=== PATIENT | female | born 1970 | race Caucasian/White ===

== ENCOUNTER → 2021-03-30 12:47 | Outpatient (CLI) | payer OTHER, SELFPAY ==
--- NOTE | ~2021-03-30 | MM_ITS ---
EXAMINATION: MM screening jina BI w martínez HISTORY: Screening mammogram TECHNIQUE: Craniocaudal and mediolateral oblique 3-D tomosynthesis images were obtained and synthetic 2-D images were generated. CAD analysis was submitted and interpreted. COMPARISON: 11/07/2018, 11/01/2017, 10/03/2016 bilateral digital screening mammogram examinations BREAST PARENCHYMAL COMPOSITION: There are scattered areas of fibroglandular density. FINDINGS: There is no evidence of suspicious mass, calcification, or architectural distortion to sugg est malignancy in either breast. There has been no suspicious interval change. IMPRESSION: 1. No mammographic evidence of malignancy. 2. Recommend routine screening mammography in one year. BI-RADS Category 1: Negative Reviewed, dictated and finalized at location A.
== END ==
PROVIDERS: Visit Provider Nurse Practitioner
DX: Z12.31 Encounter for screening mammogram for malignant neoplasm of breast (principal)
CPT/HCPCS: 77063; 77067

== ENCOUNTER 2022-06-13 15:42 | Outpatient (CLI) | payer OTHER, SELFPAY ==
--- NOTE | ~2022-06-13 | XR_ITS ---
XR chest 2V DATE: 06/13/2022 15:57 INDICATION: Cough for 4+ weeks. Covid infection in April. TECHNIQUE: PA and lateral views COMPARISON: None FINDINGS: Normal heart size. No hilar or mediastinal enlargement. The lungs are moderately hyperinfla gentry but clear of infiltrate or consolidation. No pleural effusion or pulmonary vascular congestion or pneumothorax. Included skeletal structures are unremarkable. IMPRESSION: No active cardiopulmonary disease Reviewed, dictated and finalized at location B. 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
== END 2022-06-13 15:43 | disposition home or self-care (01) ==
LOC: ANHIMG 15:44
PROVIDERS: PCP Family Medicine; Visit Provider Nurse Practitioner Family
DX: R05.3 Chronic cough (principal)
CPT/HCPCS: 71046

== ENCOUNTER 2022-07-17 15:01 | Outpatient (CLI) | payer OTHER, SELFPAY ==
--- NOTE | ~2022-07-17 | MM_ITS ---
EXAMINATION: MM screening jina BI w martínez HISTORY: Screening mammogram TECHNIQUE: Craniocaudal and mediolateral oblique 3-D tomosynthesis images were obtained and synthetic 2-D images were generated. CAD analysis was submitted and interpreted. COMPARISON: 03/30/2021, 11/07/2018, 11/01/2017 bilateral screening mammogram examinations BREAST PARENCHYMAL COMPOSITION: There are scattered areas of fibroglandular density. FINDINGS: Stable mild fibroglandular asymmetry. There is no evidence of suspicious mass, calcificatio n, or architectural distortion to suggest malignancy in either breast. There has been no suspicious i nterval change. IMPRESSION: 1. No mammographic evidence of malignancy. 2. Recommend routine screening mammography in one year. BI-RADS Category 2: Benign finding(s). Reviewed, dictated and finalized at location A. 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
== END 2022-07-17 15:02 | disposition home or self-care (01) ==
LOC: ANHIMG 15:03
PROVIDERS: PCP Family Medicine; Visit Provider Nurse Practitioner
DX: Z12.31 Encounter for screening mammogram for malignant neoplasm of breast (principal)
CPT/HCPCS: 77063; 77067

== ENCOUNTER 2023-11-05 08:37 | Outpatient (CLI) | payer OTHER, SELFPAY ==
--- NOTE | ~2023-11-05 | MM_ITS ---
EXAMINATION: MM screening jina BI w martínez HISTORY: Screening mammogram TECHNIQUE: Craniocaudal and mediolateral oblique 3-D tomosynthesis images were obtained and synthetic 2-D images were generated. CAD analysis was submitted and interpreted. COMPARISON: 07/17/2022, 03/30/2021 bilateral screening mammogram examinations BREAST PARENCHYMAL COMPOSITION: There are scattered areas of fibroglandular density. FINDINGS: There is no evidence of suspicious mass, calcification, or architectural distortion to sugg est malignancy in either breast. There has been no suspicious interval change. IMPRESSION: 1. No mammographic evidence of malignancy. 2. Recommend routine screening mammography in one year. BI-RADS Category 1: Negative Reviewed, dictated and finalized at location A.
== END 2023-11-05 08:38 | disposition home or self-care (01) ==
PROVIDERS: PCP Family Medicine; Visit Provider Nurse Practitioner
DX: Z12.31 Encounter for screening mammogram for malignant neoplasm of breast (principal)
CPT/HCPCS: 77063; 77067

== ENCOUNTER 2024-05-21 00:12 | Day surgery (SDC) | payer OTHER, SELFPAY ==
[2024-05-08 14:19] VITALS: BMI 28.3
[2024-05-21 12:22] VITALS: BP 145/82; PULSE 63; RESP 18; TEMP 36.4; O2SAT 98
[2024-05-21] MEDS: LACTATED RINGERS 1,000 ML 150 ML IV CONT (12:35)
--- NOTE | 2024-05-21 12:59 | WPDANESEPPF ---
Anes - Initial Pre Proc Eval Procedure: Operation Date: 05/21/24 13:30 Proposed Procedures p Screening Colonoscopy - Carl Costello MD Date/Time: 05/21/24 12:59 Surgeon: Carl Costello MD Pre Op Diagnosis: screening neoplasm of colon Patient Data Age: 53 Gender: F Height: 1.63 m Weight: 73.7 kg Last Vital Signs Temp 36.4 C 05/21/24 12:22 Pulse 63 05/21/24 12:22 Resp 18 05/21/24 12:22 BP 145/82 H 05/21/24 12:22 Pulse Ox 98 05/21/24 12:22 O2 Del Method Room Air 05/21/24 12:22 Allergies Allergy/AdvReac Type Severity Reaction Status Date / Time clarithromycin Allergy Unknown Unknown Verified 05/21/24 12:16 Nitrate Analogues AdvReac Intermediate Hives Verified 05/21/24 12:16 Home Medications Medication Instructions Recorded Confirmed Type levothyroxine 112 mcg tablet 112 mcg PO DAILY 06/20/21 05/21/24 History (Synthroid) norgestimate 0.18 mg/0.215 mg/0.25 1 tablet PO DAILY 05/23/22 05/21/24 History mg-ethinyl estradiol 25 mcg tablet albuterol sulfate 90 mcg/actuation 2 inh inhalation Q4H PRN shortness 06/13/22 05/21/24 Rx aerosol inhaler (ProAir HFA) of breath or wheezing #6.7 grams duloxetine 60 mg capsule,delayed 60 mg PO DAILY #90 caps 12/11/23 05/21/24 Rx release multivitamin with minerals-folic 1 tablet PO DAILY 05/08/24 05/21/24 History acid 0.4 mg tablet Patient hx anesthesia problems: none Family hx anesthesia problems: none Results Review: All pre-operative results and documents have been reviewed as part of the pre-operative evaluation. [facility] Past Medical History Medical History BMI 29.0-29.9,adult Influenza A Surgical History Surgical History Hx of left inguinal hernia repair with mesh in 2005. Family History Family History Sibling Family history of coronary artery disease Father No problems noted. 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 Gender identity (if verbalized by the patient): Female Spiritual care concerns: No Anes - Eval Final PreProcedure Day of Procedure 05/21/24 12:59 Patient weight: overweight Heart: regular rate and rhythm Lungs: clear to auscultation Airway: Mallampati scale class 1 Neurological: alert and oriented Last oral intake: >/= 8 hours ASA classification: II Emergent: no Anesthetic plan: proceed Anesthesia type and monitoring: general GIVS Results Review: All pre-operative results and documents have been reviewed as part of the pre-operative evaluation. Informed Consent: The patient's anesthetic plan and its attendant risks and benefits were discussed with the patient/family/POA. Questions were solicited and answers provided to the satisfaction of the patient/family/POA.
--- NOTE | 2024-05-21 13:02 | PM.HPGS ---
History of Present Illness History of Present Illness Consent: Risks, benefits, and alternatives have been discussed and questions answered. Patient agrees to proceed with procedure. Chief complaint: screening neoplasm of colon Narrative: Ernestina Dutton Chi is a 53 year old female here for first screening colonoscopy Review of Systems Review of Systems: All systems reviewed & are unremarkable except as noted in HPI and below PMFSH Past Medical History Medical History BMI 29.0-29.9,adult Influenza A Surgical History Surgical History Hx of left inguinal hernia repair with mesh in 2005. Family History Family History Sibling Family history of coronary artery disease Father No problems noted. 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 Gender identity (if verbalized by the patient): Female Spiritual care concerns: No Meds Home Medications and Allergies Home Medications Medication Instructions Recorded Confirmed Type levothyroxine 112 mcg tablet 112 mcg PO DAILY 06/20/21 05/21/24 History (Synthroid) norgestimate 0.18 mg/0.215 mg/0.25 1 tablet PO DAILY 05/23/22 05/21/24 History mg-ethinyl estradiol 25 mcg tablet albuterol sulfate 90 mcg/actuation 2 inh inhalation Q4H PRN shortness 06/13/22 05/21/24 Rx aerosol inhaler (ProAir HFA) of breath or wheezing #6.7 grams duloxetine 60 mg capsule,delayed 60 mg PO DAILY #90 caps 12/11/23 05/21/24 Rx release multivitamin with minerals-folic 1 tablet PO DAILY 05/08/24 05/21/24 History acid 0.4 mg tablet Allergies Allergy/AdvReac Type Severity Reaction Status Date / Time clarithromycin Allergy Unknown Unknown Verified 05/21/24 12:16 Nitrate Analogues AdvReac Intermediate Hives Verified 05/21/24 12:16 Vital Signs Vital Signs - 24 hr 05/21/24 12:22 Temperature 97.6 F Pulse Rate 63 Respiratory Rate 18 Blood Pressure 145/82 H Pulse Oximetry 98 Oxygen Delivery Room Air Exam Const: General: comfortable and no acute distress HENMT: Face/Nose/Sinus: Normal nares present Eyes: General: appearance normal, both eyes and all related structures Neck: Neck: no JVD Resp: Auscultation: clear to auscultation bilaterally Cardio: Rate: regular rate Rhythm: regular rhythm GI: Inspection: non-distended GI Palp: Yes Soft to palpation Skin: General skin exam: normal color Neuro: General: gait normal Speech: normal speech Extrem: General: normal to inspection Psych: Mental Status: mental status grossly normal Assessment and Plan Assessment and plan (1) Colon cancer screening: Code(s): Z12.11 - Encounter for screening for malignant neoplasm of colon Status: Acute Assessment and Plan: colonoscopy
[2024-05-21 13:03] LABS: BEDSIDEPREGUCG Negative (Negative)
[2024-05-21 13:21] VITALS: BP 119/62; PULSE 52; RESP 17; O2SAT 100
--- NOTE | 2024-05-21 13:23 | SUR.OPER ---
Transverse colon polyp not retrieved. Dr. Murphy notified.
[2024-05-21 13:31] VITALS: BP 114/66; PULSE 50; RESP 15; O2SAT 100
[2024-05-21 13:41] VITALS: BP 130/76; PULSE 60; RESP 14; O2SAT 100
== END 2024-05-21 13:50 | disposition home or self-care (01) ==
PROVIDERS: Nurse Anesthetist, Certified Registered; PCP Family Medicine; Referring Provider Nurse Practitioner Family; Visit Provider Internal Medicine Gastroenterology
PROC: 0DJD8ZZ Inspection of Lower Intestinal Tract, Via Natural or Artificial Opening Endoscopic (ICD-10-PCS; CPT 45378; principal; 2024-05-21 13:30)
DX: Z12.11 Encounter for screening for malignant neoplasm of colon (principal); K63.5 Polyp of colon; K64.8 Other hemorrhoids; Z79.51 Long term (current) use of inhaled steroids
CPT/HCPCS: 45385; J2704; J7120